=== PATIENT | male | born 1990 | race Caucasian/White ===

== ENCOUNTER 2016-06-27 18:31 | Emergency (ER) | payer OTHER ==
[2016-06-27 18:23] LABS: URINE SOURCE CLEAN CATCH
[2016-06-27 18:26] LABS: URINE APPEARANCE CLEAR; URINE BILIRUBIN NEG (NEG); URINE BLOOD NEG (NEG); URINE COLOR YELLOW; URINE GLUCOSE NEG (NORM); URINE KETONE TRACE (NEG); URINE LEUKOCYTE ESTERASE NEG (NEG); URINE NITRATE NEG (NEG); URINE PH 7.5 (5-8); URINE PROTEIN NEG (NEG)
[2016-06-27 18:31] LABS: MICRO INDICATED? NO
[~2016-06-27 18:31] MED LIST: AMOXICILLIN PO; AMOXICILLIN875 MG PO; BACITRACIN30 GM TOP; BACTRIM DS TABL1 TA1; CIPRO PO; CORTISPORI10 ML OTIC OT; DICLOFENAC; DOXYCYCLINE PO; FAMOTIDINE PO; FLEXERIL PO; FLEXERIL10 M1 PO; IBUPROFEN PO; KEFLEX500 MG PO; LIDOCAINE HC20 MG/M1 MM; MAGIC MOUTH WASH; MAGNESIUM CITR296 M1 PO; METHADONE; METHADONE PO; MIRALAX17 G1 PO; NO MEDICATIONS; PHENERGAN W/CO120 ML PO; PYRIDIUM PO; RONDEC-DM ORAL30 ML PO; SUDAFED PO; VIBRAMYCIN100 M1 PO; VICODIN 5/500 T1 TAB PO; VOLTAREN75 MG PO; ZITHROMAX PO; ZYRTEC10 M2 PO
[2016-07-02 12:35] LABS: CHLAMYDIA TRACH Detected (Not Detected); N GONOR Not Detected (Not Detected)
== END 2016-06-27 18:44 | disposition home or self-care (01) ==
LOC: SED 18:31
PROVIDERS: Nurse Practitioner
DX: N34.1 Nonspecific urethritis (principal); F17.210 Nicotine dependence, cigarettes, uncomplicated
CPT/HCPCS: 81003; 87491; 87591; 96372; 99283; J0696

== ENCOUNTER 2016-08-06 17:00 | Emergency (ER) | payer OTHER ==
[2016-08-06 18:23] LABS: MICRO INDICATED? YES; URINE APPEARANCE CLEAR; URINE BILIRUBIN NEG (NEG); URINE BLOOD NEG (NEG); URINE COLOR YELLOW; URINE GLUCOSE NORM (NEG); URINE KETONE NEG (NEG); URINE LEUKOCYTE ESTERASE TRACE (NEG); URINE NITRATE NEG (NEG); URINE PH 5.5 (5-8); URINE PROTEIN NEG (NEG); URINE SOURCE CATH
[2016-08-06 18:27] LABS: CULTURE INDICATED? YES; URINE BACTERIA 1+ (NEG); URINE RBC 0-2 /[HPF] (0-2); URINE SQUAMOUS EPITHELIAL CELL OCCAS /[HPF]; URINE WBC 25-50 /[HPF] (0-5)
[2016-08-09 15:38] LABS: CHLAMYDIA TRACH Detected (Not Detected); N GONOR Not Detected (Not Detected)
== END 2016-08-06 18:52 | disposition home or self-care (01) ==
LOC: SED 17:00
PROVIDERS: Nurse Practitioner
DX: N39.0 Urinary tract infection, site not specified (principal)
CPT/HCPCS: 81003; 87086; 87491; 87591; 99283

== ENCOUNTER 2016-11-20 23:17 | Emergency (ER) | payer OTHER ==
[~2016-11-20] VITALS: Ht 172.7 cm; Wt 68.0 kg
--- NOTE | ~2016-11-20 | CR72 ---
[facility]. [facility] A Service of [facility] & [facility] RADIOLOGY TEXT RESULTS PATIENT: ALBERTA WRIGHT LOCATION: SED : 91 UNIT #: [id number] AGE: [address]: Carli Larios SEX: M ORDER DR: [id number] [place] [id number] E MR#: [id number] Acc #: [id number] NAME: ALBERTA WRIGHT. : 1990 SEX: M STUDY DATE/TIME: 11/20/2016 23:55 UNIT: SED ROOM: STUDY DESCRIPTION: CR Chest Single View Portable Attending Physician: Carli Larios Pa-C Ordering Physician: Reece Bee M.D. Primary Care Physician: Edilia Patel M.D. MEDICAL IMAGING REPORT This report is preliminary unless electronic signature is present. EXAM Portable chest. INDICATIONS Chest pain today. PROCEDURE Frontal view chest. COMPARISON 02/01/2010 FINDINGS Heart size is normal. Lungs are clear. No pleural fluid or pneumothorax. IMPRESSION No active process. Dictated by... Russell Rondon M.D. THIS IS AN ELECTRONICALLY VERIFIED REPORT Russell Rondon M.D. at 11/25/2016 8:31 AM EED/anna TD: 11/21/2016 06:51 JOB #: [id number] MEDICAL IMAGING REPORT Page 1 of 1
--- NOTE | ~2016-11-20 | CT16 ---
[facility] A Service of [facility] RADIOLOGY TEXT RESULTS PATIENT: ALBERTA WRIGHT LOCATION: SED : 91 UNIT #: [id number] AGE: [address]: Carli Larios SEX: M ORDER DR: [id number] [place] [id number] E MR#: [id number] Acc #: [id number] NAME: ALBERTA WRIGHT. : 1990 SEX: M STUDY DATE/TIME: 11/21/2016 0:47 UNIT: SED ROOM: STUDY DESCRIPTION: CT Angio Chest for PE Attending Physician: Carli Larios Pa-C Ordering Physician: Carli Larios Pa-C Primary Care Physician: Edilia Patel M.D. MEDICAL IMAGING REPORT This report is preliminary unless electronic signature is present. EXAM CTA chest PE protocol. INDICATIONS Right chest pain today with elevated D-dimer level. PROCEDURE Contrast-enhanced CTA of the chest attention on opacification of the pulmonary arteries. Coronal 3-D MIP sagittal reformatted images reconstructed and submitted. This CT exam was performed with one or more of the following radiation dose reduction techniques: Automatic exposure control, adjustment of mA and/or kV according to patient size, and iterative reconstruction. COMPARISON None. FINDINGS No evidence for pulmonary embolus or acute aortic injury. No adenopathy. Bilateral gynecomastia. No acute findings in the included upper abdomen. Lungs are clear. No aggressive appearing bone lesion. IMPRESSION 1. No acute findings. No evidence for pulmonary embolus. 2. Bilateral gynecomastia. 1. Dictated by... Russell Rondon M.D. THIS IS AN ELECTRONICALLY VERIFIED REPORT Russell Rondon M.D. at 11/25/2016 8:30 AM EED/bd [facility] A Service of [facility] & [facility] RADIOLOGY TEXT RESULTS PATIENT: ALBERTA WRIGHT LOCATION: SED : 91 UNIT #: [id number] AGE: [address]: Carli Larios SEX: M ORDER DR: TD: 11/21/2016 07:04 JOB #: [id number] MEDICAL IMAGING REPORT Page 1 of 1
--- NOTE | ~2016-11-20 | EKG ---
PATIENT: ALBERTA WRIGHT UNIT #: [id number] Ventricular Rate: 54 BPM Atrial Rate: 54 BPM P-R Interval: 146 ms QRS Duration: 80 ms Q-T Interval: 420 ms QTC Calculation(Bezet): 398 ms P [place]: 52 degrees Calculated R [place]: 75 degrees Calculated T [place]: 47 degrees Diagnosis Line: Sinus bradycardia Diagnosis Line: Possible Left atrial enlargement Diagnosis Line: Borderline ECG Diagnosis Line: No previous ECGs available Diagnosis Line: Confirmed by RITA MENDEZ MD ([id number]) on Diagnosis Line: 11/21/2016 7:35:26 AM INTERPRETING MD: ANDREA ESTEBAN
[2016-11-20] MEDS ORDERED: NO MEDICATIONS (23:24)
[2016-11-21] LABS: BASOPHIL% 0.6 % (0-2.5); EOSINOPHIL# 0.2 X10e3 (0-0.7); EOSINOPHIL% 3.4 % (0.0-7.0); HEMATOCRIT 38.3 % (38.0-50.0); HEMOGLOBIN 13.2 gm/dL (13.0-16.0); LYMPHOCYTE# 2.8 X10e3 (1.0-3.5); LYMPHOCYTE% 45.4 % (17.0-45.0); MEAN CELL VOLUME 86.8 FL (83-96); MEAN CORPUSCULAR HEMOGLOBIN 29.9 PG (28-34); MEAN CORPUSCULAR HGB CONC 34.4 g/dL (30-36); MEAN PLATELET VOLUME 7.9 FL (6.5-11.5); MONOCYTE# 0.4 X10e3 (0-1.0); MONOCYTE% 6.7 % (3.0-12.0); NEUTROPHIL# 2.7 X10e3 (1.5-7.1); NEUTROPHIL% 43.9 % (40-75); PLATELET COUNT 216 X10e3 (140-420); RED BLOOD COUNT 4.41 X10e (3.90-5.60); RED CELL DISTRIBUTION WIDTH 12.3 % (11.0-15.5); WHITE BLOOD COUNT 6.1 X10e3 (4.0-10.5)
[2016-11-21 00:01] LABS: DIFF IND NO
[2016-11-21 00:08] LABS: INR 1.1; PROTHROMBIN TIME (PATIENT) 12.1 SECONDS (9.5-12.4)
[2016-11-21 00:09] LABS: AMPHETAMINE NEG (NEG); BARBITURATES NEG (NEG); BENZODIAZEPINES NEG (NEG); COCAINE NEG (NEG); MARIJUANA POS (NEG); OPIATES POS (NEG); TRICYCLIC ANTIDEPRESSANTS NEG (NEG); U METHADONE POS (NEG)
[2016-11-21 00:14] LABS: POC - CKMB <1.0 ng/mL (0.0-7.9); POC - TROPONIN <0.05 ng/mL (<=0.05)
[2016-11-21 00:15] LABS: PARTIAL THROMBOPLASTIN TIME 33.6 SECONDS (25.6-38.1)
[2016-11-21 00:16] LABS: ALBUMIN SERUM 4.2 g/dL (3.5-5.0); BILIRUBIN,TOTAL 0.9 mg/dL (0.2-2.0); CALCIUM SERUM 9.2 mg/dL (8.4-10.2); CREATININE SERUM 0.9 mg/dL (0.6-1.4); GLOM FILT RATE Estimated 118.3 mL/min (>60); POTASSIUM 3.5 mmol/L (3.5-5.1); PROTEIN TOTAL SERUM 8.1 g/dL (6.0-8.3)
== END 2016-11-21 02:20 | disposition home or self-care (01) ==
LOC: SED 23:17
PROVIDERS: Physician Assistant Medical
DX: M94.0 Chondrocostal junction syndrome [Tietze] (principal); F17.210 Nicotine dependence, cigarettes, uncomplicated
CPT/HCPCS: 36415; 71010; 71275; 80053; 80307; 82553; 84484; 85025; 85379; 85610; 85730; 93005; 99285; Q9967